=== PATIENT | male | born 1970 | race Hispanic/Latino ===

== ENCOUNTER 2024-07-20 16:09 | Emergency (ER) | payer OTHER ==
[~2024-07-20] VITALS: Ht 175.3 cm; Wt 104.3 kg
[~2024-07-20 16:09] MED LIST: LOSA50TA64 PO; METF-444 PO
--- NOTE | 2024-07-20 18:31 | HMCIMG ---
ULTRASOUND VENOUS DOPPLER LEFT UPPER EXTREMITY INDICATION: Swelling. TECHNIQUE: Routine grayscale and color and spectral Doppler ultrasound of the left upper extremity veins performed in real-time, and images subsequently made available for review. COMPARISON: None FINDINGS: Normal compression, vascular antegrade flow, respiratory variation and spectral waveforms identified within the left internal jugular vein, subclavian vein, axillary vein, brachial vein, cephalic vein, and basilic vein. No evidence for an intraluminal thrombus. No soft tissue abnormalities demonstrated. IMPRESSION: No evidence for left upper extremity venous thrombosis.
--- NOTE | 2024-07-20 18:46 | NUR ---
ASSUMED CARE AT THIS TIME PT MOVED TO FAST TRACK
[2024-07-20] MEDS: morPHINE 2 MG SYG IM ONE (19:16)
--- NOTE | 2024-07-20 19:17 | ERN ---
ED Note History of Present Illness Stated Complaint: ELBOW PAIN Chief Complaint: Elbow Problem Time Seen by MD: 16:17 Time Seen by Midlevel: 16:22 Dictation: 53-year-old male coming in with complaints of left elbow pain. Patient has suffered a crushing injury on . Patient was seen here where they did x-rays and CT scans of the upper extremity and everything was normal. Patient was discharged and was to follow up with PCP. Patient returned today for not resolving symptoms. Patient states the arm is still swollen and painful. Allergies: Coded Allergies: No Known Drug Allergies (Unverified Allergy, Intermediate, 07/15/24) Home Meds Reported Medications Metformin HCl (Metformin HCl) 500 Mg Tablet, 1 TAB PO DAILY for 30 Days, #60 TAB 0 Refills 07/16/24 Losartan Potassium (Losartan Potassium) 50 Mg Tablet, 1 TAB PO DAILY for 30 Days, #30 TAB 0 Refills 07/16/24 Past Medical History Past Medical History: Diabetes-Type II, Hypertension Surgical History: Cholecystectomy, Other, Bariatric Surgery Surgical History Other: BACK, BILAT HIP, Review of System Dictation Constitutional: Negative for fever,chills, and weight loss Eyes: Negative for injury, pain,redness, and discharge ENT: Negative for injury,pain or swelling Cardiovascular: Negative for chest pain, palpitations, and edema Respiratory: Negative for shortness of breath, cough, and wheezing, Abdomen/GI: Negative for abdominal pain, nausea, vomiting, diarrhea, and constipation Back: Negative for injury and pain : Negative for injury, bleeding and discharge MS/Extremity: Left elbow pain and swelling Skin: Negative for rash, and discoloration Neuro: Negative for headache, weakness, numbness, tingling, and seizure Psych: Negative for suicide ideation, homicidal ideation, and hallucinations Review of Systems: was completed Initial Vital Sign VS Vital Signs Date Time Temp Pulse Resp B/P (MAP) Pulse Ox O2 Delivery O2 Flow Rate FiO2 07/20/24 16:22 97.9 73 20 144/85 99 Room Air 0 Physical Exam Dictation General: awake, alert, NAD Head/Face: Normocephalic, atraumatic Eyes: PERRL, EOMI, vision at baseline ENT: oral cavity clear, TMs clear, no signs of infection Neck: Trachea midline, supple, no nuchal rigidity Cardiovascular: RRR, normal S1/S2, No MRGs, no JVD Respiratory: CTAB, no respiratory distress, No rales or wheezes Abdomen: Soft, non-tender, non-distended, normal bowel sounds, no guarding or rebound. Skin: Warm, dry, normal turgor, no rash MS/Extremity: Pulses equal, no cyanosis, neurovascular intact, FROM, there is swelling noted to the left elbow extending to the mid lower forearm along with ecchymosis and different stages of healing Neuro: COAx4, GCS 15, strength 5/5, CN 2-12 intact, normal cerebellar exam, normal gait, Psych: Normal behavior, mood, and affect normal Results (Laboratory/Radiology) Ultrasound Comment: [place] [id number] [id number] IMAGING REPORT Signed PATIENT: KELLI JOHANSEN MR#: [id number] : 1970 SEX: M AGE: 53 LOCATION: [facility] ORDER 57 STATUS: REG ER REPORT#: [id number] SERVICE 55 REASON: left elbow pain swelling ORDERING PHYSICIAN: JOSE RAFAEL EMERSON NP PROCEDURE: VENOUS UNI - US VENOUS DOPPLER UNILATERAL ULTRASOUND VENOUS DOPPLER LEFT UPPER EXTREMITY INDICATION: Swelling. TECHNIQUE: Routine grayscale and color and spectral Doppler ultrasound of the left upper extremity veins performed in real-time, and images subsequently made available for review. COMPARISON: None FINDINGS: Normal compression, vascular antegrade flow, respiratory variation and spectral waveforms identified within the left internal jugular vein, subclavian vein, axillary vein, brachial vein, cephalic vein, and basilic vein. No evidence for an intraluminal thrombus. No soft tissue abnormalities demonstrated. IMPRESSION: No evidence for left upper extremity venous thrombosis. DICTATED BY: LORI MCNEAL MD DATE: 07/20/241827 ELECTRONICALLY SIGNED BY: LORI MCNEAL MD DATE: 07/20/241830 ED Course ED Course Orders Procedure Category Date Status Time Morphine 2mg Syg PHA 07/20/24 Complete (Morphine 2mg Syg) 17:00 Us Venous Doppler US 07/20/24 Resulted Unilateral 17:56 Current Medications Medications (Trade) Dose Ordered Sig/Anatoly Route PRN Reason Start Time Stop Time Status Last Admin Dose Admin Morphine Sulfate (morPHINE 2MG SYG) 2 mg ONCE ONCE IM 07/20/24 17:00 07/20/24 17:03 DC Vital Signs Date Time Temp Pulse Resp B/P (MAP) Pulse Ox O2 Delivery O2 Flow Rate FiO2 07/20/24 16:22 97.9 73 20 144/85 99 Room Air 0 Medical Decision Making MDM MDM: 53-year-old male coming in with complaints of left elbow pain. Patient has suffered a crushing injury on . Patient was seen here where they did x-rays and CT scans of the upper extremity and everything was normal. Patient was discharged and was to follow up with PCP. Patient returned today for not resolving symptoms. Patient states the arm is still swollen and painful. Ultrasound of the left upper extremity shows no DVT. Educated patient that he needs to follow up with PCP and or with the ortho as there might be some ligament/tendon injury. Educated on red flag symptoms and when to return back to the emergency room. Patient verbalized understanding, answered all questions. Differential diagnosis: DVT, cellulitis, thrombophlebitis Rationale: Tests considered and ordered secondary to shared decision making include: Previous outside records reviewed: Old ER visits. Risk of complication and/or morbidity or mortality of patient management: None Medications-Per medication reconciliation Need for hospitalization: Patient does not meet criteria for hospitalization. Need for emergency major/minor surgery: No There are no social concerns with this patient. Prescription drug management Prescriptions will include symptomatic care Patient's prior external medical records from other ER visits were reviewed by me as indicated. Prior testing and results from previous visits were reviewed. Prior tests were taken into account with medical decision making and resource utilization, independent historian/historians were used to obtain complete medical history. I independently interpreted the test that were performed, results were reviewed by me and considered findings on radiology if ordered. Medical management and examination interpretation discussions were had by me with other qualified healthcare professionals as indicated for the patient's care. DX & DISP Disposition: Discharge Departure Impression: Primary Impression: Left arm pain Additional Impression: Crushing injury of left forearm Condition: Stable Additional Instructions: Elevate the extremity, you can apply ice for the swelling. Use sling as needed. Follow up with your PCP and with the orthopedic assistant you might need further evaluation regarding your injury. Take Tylenol or ibuprofen [id number] for pain control. Referrals: KELLI HERNANDES MD (PCP) CINTHYA CORADO MD Time of Disposition: 19:16 I have reviewed the case, and I agree with, Diagnosis and Plan JOSE RAFAEL EMERSON NP July 20, 2024 19:17
[2024-07-20 19:25] VITALS: BP 141/83; PULSE 72; RESP 18; TEMP 97.9; O2SAT 99
== END 2024-07-20 19:29 | disposition home or self-care (01) ==
LOC: EDH 16:09
DX: S50.02XA Contusion of left elbow, initial encounter (principal); M79.602 Pain in left arm; E11.9 Type 2 diabetes mellitus without complications; I10 Essential (primary) hypertension; Z79.84 Long term (current) use of oral hypoglycemic drugs; Z79.899 Other long term (current) drug therapy; Z90.49 Acquired absence of other specified parts of digestive tract; W23.0XXA Caught, crushed, jammed, or pinched between moving objects, initial encounter; Y93.89 Activity, other specified; Y92.89 Other specified places as the place of occurrence of the external cause; Y99.8 Other external cause status
CPT/HCPCS: 99285; 93971; 96372; J2270